=== PATIENT | male | born 1985 | race Caucasian/White ===

== ENCOUNTER 2017-12-10 13:18 | Emergency (ER) | payer BC ==
[2017-12-10] MEDS ORDERED: Colchicine 0.6 MG TAB ONE (13:54)
[2017-12-10] MEDS ORDERED: Dexamethasone 10 MG/ML VIAL ONE (13:54)
[2017-12-10] MEDS ORDERED: Ketorolac Tromethamine 30 MG/ML VIAL ONE (14:16)
== END 2017-12-10 14:50 | disposition home or self-care (01) ==
LOC: SCSER 13:18
DX: M10.9 Gout, unspecified (principal); K21.9 Gastro-esophageal reflux disease without esophagitis; M19.90 Unspecified osteoarthritis, unspecified site; F17.210 Nicotine dependence, cigarettes, uncomplicated; Z79.899 Other long term (current) drug therapy
CPT/HCPCS: 96372; J1100; J1885